=== PATIENT | female | born 2000 | race African-American/Black ===

== ENCOUNTER 2021-05-23 10:46 | Emergency (ER) | payer OTHER ==
[~2021-05-23] VITALS: Ht 157.5 cm; Wt 68.0 kg
[2021-05-23] MEDS ORDERED: OMEPRAZOLE-BIC1 EAC1 PO (11:13)
[2021-05-23] MEDS ORDERED: MINOCYCLINE HC100 M1 PO (11:13)
[2021-05-23] MEDS ORDERED: PEPCID AC20 MG PO (11:14)
[2021-05-23] MEDS ORDERED: KETO10TA2 PO (19:58)
== END 2021-05-23 20:07 | disposition home or self-care (01) ==
LOC: EMR PED 10:46
DX: R51.9 Headache, unspecified (principal)